=== PATIENT | female | born 1990 | race Two or more races ===

== ENCOUNTER 2022-10-27 03:02 | Emergency (ER) | payer MEDICAID ==
[~2022-10-27] VITALS: Ht 160 cm; Wt 74.4 kg
[2022-10-27 03:39] VITALS: BP 118/54
== END 2022-10-27 08:49 | disposition home or self-care (01) ==
LOC: ER 03:02
DX: K80.20 Calculus of gallbladder without cholecystitis without obstruction (principal)
CPT/HCPCS: 74176